=== PATIENT | female | born 1955 | race American Indian/Alaskan Native ===

== ENCOUNTER 2017-01-30 21:31 | Emergency (ER) | payer SELFPAY ==
[2017-01-30 21:45] VITALS: BP 152/98
[2017-01-30] MEDS ORDERED: Albuterol/Ipratropium 3.0-0.5 MG/3 ML Neb Soln NEB ONE (21:49)
[2017-01-30] MEDS ORDERED: Codeine/guaiFENesin 100mg-10 MG/5 ML Soln 118 ML Bottle ONE (21:53)
[2017-01-30] MEDS ORDERED: Azithromycin 250 MG Tab PO ONE (21:54)
--- NOTE | 2017-02-01 19:06 | ER ---
DATE SEEN: 01/30/2017 CHIEF COMPLAINT: Cough. HISTORY OF PRESENT ILLNESS: This is a 61-year-old female with a paroxysmal cough for a period of one week, insidious onset, associated chest pain when she coughs, and productive of clear sputum. REVIEW OF SYSTEMS: Fever, sinus congestion. Denies any shortness of breath. Complains of wheezing. SOCIAL HISTORY: Smoker. PAST MEDICAL HISTORY: Borderline diabetes and migraine headaches. MEDICATIONS: Propranolol. PHYSICAL EXAMINATION: GENERAL: Nontoxic. VITAL SIGNS: Blood pressure 152/98, temperature 97.5, oxygenation 99%. EARS, NOSE, AND THROAT: Negative. NECK: Supple. CHEST: End-expiratory rhonchi. HEART: Regular rate and rhythm. LABORATORY DATA: None. IMPRESSION: Acute bronchitis. PLAN: 1. DuoNeb x1. 2. Z-Yinka. 3. Robitussin with codeine 10 mL q.6 hours p.r.n. 4. Follow up in the office in 1 to 2 days. Time seen is 2152 hours. /[id number] KYLE/GIO
== END 2017-01-30 22:10 | disposition home or self-care (01) ==
LOC: FB.ED 21:31
DX: J20.9 Acute bronchitis, unspecified (principal)
CPT/HCPCS: 94640; 99282; A9270; J7620